=== PATIENT | female | born 2000 | race Caucasian/White ===

== ENCOUNTER 2019-04-14 10:58 | Emergency (ER) | payer OTHER ==
[~2019-04-14] VITALS: Ht 160 cm; Wt 75.0 kg
[~2019-04-14 10:58] MED LIST: BIRTH CONTROL PILLS; NO HOME MEDICATIONS; VENTOLIN0.09 MG IH
[2019-04-14 11:02] VITALS: TEMP 98.5
[2019-04-14] MEDS ORDERED: CEPHALEXIN500 M1 PO (13:02)
[2019-04-14] MEDS ORDERED: ZOFRAN ODT4 MG PO (13:10)
[2019-04-14 13:27] VITALS: BP 120/62; PULSE 82
== END 2019-04-14 13:25 | disposition home or self-care (01) ==
LOC: COL.ER 10:58
DX: S06.0X0A Concussion without loss of consciousness, initial encounter (principal); S01.01XA Laceration without foreign body of scalp, initial encounter; S60.222A Contusion of left hand, initial encounter; W55.12XA Struck by horse, initial encounter; Y92.009 Unspecified place in unspecified non-institutional (private) residence as the place of occurrence of the external cause

== ENCOUNTER → 2019-04-25 | Outpatient (CLI) | payer OTHER ==
[~2019-04-25] MED LIST changes: +CEPHALEXIN500 M1 PO; +ZOFRAN ODT4 MG PO
[2019-04-25 15:42] VITALS: BP 121/72; PULSE 78; TEMP 98.3
== END ==
LOC: COL.ER 15:16
DX: S01.91XD Laceration without foreign body of unspecified part of head, subsequent encounter (principal); X58.XXXD Exposure to other specified factors, subsequent encounter